=== PATIENT | male | born 1945 | race Asian ===

== ENCOUNTER 2017-05-28 09:17 | Emergency (ER) | payer MEDICARE, OTHER ==
[~2017-05-28] VITALS: Ht 154.9 cm; Wt 68.1 kg
[~2017-05-28 09:17] MED LIST: AMLO-512 PO; LOSA25TA21 PO; LOVA20 PO; METF500T7 PO; METO50 PO
[2017-05-28 09:32] LABS: GLUCOSE,POINT OF CARE 98 MG/DL (70-110)
[2017-05-28] MEDS ORDERED: SIMV5TAB6 PO (09:33)
[2017-05-28] MEDS ORDERED: METO25 PO (09:33)
[2017-05-28] MEDS ORDERED: AMLO2.5T PO (09:33)
[2017-05-28] MEDS ORDERED: HYD25 PO (09:33)
[2017-05-28] MEDS ORDERED: LOSA25TA21 PO (09:33)
[2017-05-28] MEDS ORDERED: METF500T4 PO (09:33)
[2017-05-28] MEDS ORDERED: PredniSONE 20 MG TABLET PO ONE (10:45)
[2017-05-28] MEDS ORDERED: LORATADINE 10 MG TABLET PO ONE (10:45)
[2017-05-28 11:02] VITALS: BP 132/71
== END 2017-05-28 11:04 | disposition home or self-care (01) ==
LOC: EMS 09:18
DX: R21 Rash and other nonspecific skin eruption (principal); E11.9 Type 2 diabetes mellitus without complications; E78.00 Pure hypercholesterolemia, unspecified; I10 Essential (primary) hypertension; Z86.73 Personal history of transient ischemic attack (TIA), and cerebral infarction without residual deficits
CPT/HCPCS: 82962; 99283; J7512

== ENCOUNTER 2019-07-14 00:31 | Emergency (ER) | payer MEDICARE, OTHER ==
[~2019-07-14] VITALS: Ht 157.5 cm; Wt 61.4 kg
[~2019-07-14 00:31] MED LIST changes: -AMLO-512 PO; +AMLO10TA7 PO; +AMLO2.5T4 PO; +HYD25 PO; -LOSA25TA21 PO; +LOSA25TA41 PO; +METF-960 PO; +METO25 PO; +SIMV5TAB59 PO
[2019-07-14 01:36] LABS: GLUCOSE,POINT OF CARE 158 MG/DL (70-110)
[2019-07-14 04:31] VITALS: BP 135/82
== END 2019-07-14 04:52 | disposition home or self-care (01) ==
LOC: EMS 00:33
DX: R21 Rash and other nonspecific skin eruption (principal); E11.9 Type 2 diabetes mellitus without complications; I10 Essential (primary) hypertension; E78.00 Pure hypercholesterolemia, unspecified; Z86.73 Personal history of transient ischemic attack (TIA), and cerebral infarction without residual deficits

== ENCOUNTER 2019-09-07 12:32 | Emergency (ER) | payer MEDICARE, OTHER ==
[~2019-09-07] VITALS: Ht 165.1 cm; Wt 68.2 kg
[~2019-09-07 12:32] MED LIST changes: -AMLO2.5T4 PO; -METF500T7 PO; -METO50 PO
[2019-09-07] MEDS ORDERED: TACR30OI TP (13:05)
[2019-09-07] MEDS ORDERED: METF-960 PO (13:05)
[2019-09-07] MEDS ORDERED: IBUP-1506 PO (13:05)
[2019-09-07] MEDS ORDERED: LOSA50TA64 PO (13:05)
[2019-09-07] MEDS ORDERED: CETI10TA59 PO (13:05)
[2019-09-07] MEDS ORDERED: SITA50 PO (13:05)
[2019-09-07] MEDS ORDERED: CLOB60CR4 TP (13:05)
[2019-09-07] MEDS ORDERED: VITA1CAP PO (13:05)
[2019-09-07] MEDS ORDERED: METO50 PO (13:05)
[2019-09-07 14:16] LABS: GLUCOSE,POINT OF CARE 99 MG/DL (70-110)
[2019-09-07 14:31] LABS: BASOPHILS % (AUTO) 0.4 % (0.0-2.0); EOSINOPHILS % (AUTO) 12.1 % (1.0-6.0); HEMATOCRIT 37.6 % (41-53); HEMOGLOBIN 12.1 g/dL (13.5-17.5); LYMPHOCYTES # (AUTO) 1.2 K/uL (1.0-4.8); LYMPHOCYTES % (AUTO) 14.5 % (22.0-44.0); MEAN CORPUSCULAR HEMOGLOBIN 21.8 pg (26.0-34.0); MEAN CORPUSCULAR HGB CONC 32.1 G/dL (31.0-37.0); MEAN CORPUSCULAR VOLUME 68 fL (80-100); MONOCYTES # (AUTO) 0.6 K/uL (0.1-1.0); MONOCYTES % (AUTO) 7.1 % (2.0-9.0); NEUTROPHILS # (AUTO) 5.5 K/uL (1.8-7.7); NEUTROPHILS % (AUTO) 65.9 % (40.0-70.0); PLATELET COUNT (AUTO) 260 K/uL (150-450); RED BLOOD CELL COUNT(AUTO) 5.54 MIL/uL (4.50-5.90); RED CELL DISTRIBUTION WIDTH 16.1 % (11.5-14.5)
[2019-09-07 14:48] LABS: PROTHROMBIN TIME 9.7 SEC (9.4-11.6)
[2019-09-07 14:51] LABS: CALCIUM, TOTAL 9.7 mg/dL (8.8-10.5); CREATININE 2.75 mg/dL (0.60-1.30); POTASSIUM 5.1 mmol/L (3.5-5.1)
[2019-09-07 15:18] LABS: ALBUMIN 3.8 g/dL (3.4-5.0); BILIRUBIN,TOTAL 0.5 mg/dL (0.1-1.0); PLATELET MORPHOLOGY COMMENT NORMAL; TOTAL PROTEIN, SERUM 7.8 g/dL (6.4-8.2)
[2019-09-07] MEDS ORDERED: DEXAMETHASONE SOD PHOS 4 MG/ML 5 ML VIAL IM ONE (16:45)
[2019-09-07] MEDS ORDERED: DEXAMETHASONE SOD PHOS 4 MG/ML 5 ML VIAL IVP ONE (18:00)
[2019-09-07 18:07] LABS: APPEARANCE,URINE CLEAR (CLEAR); GLUCOSE, URINE (UA) NEGATIVE (NEGATIVE); KETONES,URINE TRACE mg/dL (NEGATIVE); LEUKOCYTE ESTERASE ,URINE TRACE (NEGATIVE); NITRATE,URINE NEGATIVE (NEGATIVE); OCCULT BLOOD,URINE NEGATIVE (NEGATIVE); PROTEIN,URINE SEE CONFIRM (NEGATIVE); UROBILINOGEN,URINE 0.2 mg/dL (<=1.0)
[2019-09-07 18:20] LABS: BILIRUBIN,URINE PRELIM. POSITIVE (NEGATIVE)
[2019-09-07 18:36] LABS: BACTERIA,URINE Few /HPF (None Seen); RBC,URINE 0-2 /HPF (0-2); SQUAMOUS EPITHELIAL CELL,UR Few /LPF (None Seen); SULFOSALICYLIC ACID,URINE 2+ (Negative); WBC,URINE 0-2 /HPF (0-5)
[2019-09-07 19:13] VITALS: BP 146/63
[2019-09-07] MEDS ORDERED: DiphenhydrAMINE HCL 25 MG CAPSULE PO ONE (19:15)
[2019-09-07] MEDS ORDERED: INFLUENZA VIRUS VACCINE QVS 2019-20 (3YR+)/PF 60 MCG/0.5 ML SYRINGE IM ONE (19:45)
== END 2019-09-07 20:12 | disposition home or self-care (01) ==
LOC: EMS 12:33
DX: L50.9 Urticaria, unspecified (principal); E11.9 Type 2 diabetes mellitus without complications; I10 Essential (primary) hypertension; E78.00 Pure hypercholesterolemia, unspecified; Z86.73 Personal history of transient ischemic attack (TIA), and cerebral infarction without residual deficits; Z79.84 Long term (current) use of oral hypoglycemic drugs
CPT/HCPCS: 36415; 71045; 80053; 81001; 82550; 82962; 83880; 84484; 85025; 85610; 85730; 90471; 90686; 93005; 96374; 99285; J1100

== ENCOUNTER 2019-12-03 18:33 | Inpatient (IN) | payer MEDICARE, OTHER ==
[~2019-12-03] VITALS: Ht 165.1 cm; Wt 62.1 kg
[~2019-12-03 18:33] MED LIST changes: +CETI10TA59 PO; +CLOB60CR4 TP; -HYD25 PO; +IBUP-1506 PO; -LOSA25TA41 PO; +LOSA50TA64 PO; -METO25 PO; +METO50 PO; -SIMV5TAB59 PO; +SITA50 PO; +TACR30OI TP; +VITA1CAP PO
[2019-12-03 19:47] LABS: BASOPHILS % (AUTO) 0.5 % (0.0-2.0); EOSINOPHILS % (AUTO) 1.3 % (1.0-6.0); HEMATOCRIT 33.8 % (41-53); HEMOGLOBIN 10.8 g/dL (13.5-17.5); LYMPHOCYTES # (AUTO) 1.2 K/uL (1.0-4.8); LYMPHOCYTES % (AUTO) 16.6 % (22.0-44.0); MEAN CORPUSCULAR HEMOGLOBIN 21.5 pg (26.0-34.0); MEAN CORPUSCULAR HGB CONC 31.8 G/dL (31.0-37.0); MEAN CORPUSCULAR VOLUME 68 fL (80-100); MONOCYTES # (AUTO) 0.5 K/uL (0.1-1.0); NEUTROPHILS # (AUTO) 5.3 K/uL (1.8-7.7); NEUTROPHILS % (AUTO) 74.6 % (40.0-70.0); PLATELET COUNT (AUTO) 243 K/uL (150-450); RED BLOOD CELL COUNT(AUTO) 4.99 MIL/uL (4.50-5.90); RED CELL DISTRIBUTION WIDTH 15.8 % (11.5-14.5)
[2019-12-03 20:01] LABS: CALCIUM, TOTAL 9.4 mg/dL (8.8-10.5); CREATININE 1.92 mg/dL (0.60-1.30); POTASSIUM 3.8 mmol/L (3.5-5.1)
[2019-12-03] MEDS ORDERED: ONDANSETRON HCL 4 MG/2 ML VIAL IVP PRN (20:45)
[2019-12-03] MEDS ORDERED: BISACODYL 10 MG RECTAL RECTAL SUPPOSITORY PR PRN (20:45)
[2019-12-03] MEDS ORDERED: DEXTROSE 50%-WATER 25 GM/50 ML SYRINGE IVP PRN (20:45)
[2019-12-03] MEDS ORDERED: ACETAMINOPHEN 325 MG TABLET PO PRN ×2 (20:45)
[2019-12-03] MEDS ORDERED: SODIUM CHLORIDE 0.9% 1,000 ML IV ONE (20:45)
[2019-12-03] MEDS: DOCUSATE SODIUM 100 MG CAPSULE PO SCH (20:57)
[2019-12-03] MEDS: HEPARIN SODIUM,PORCINE 5,000 UNITS/ML VIAL SQ SCH (20:57)
[2019-12-03 21:43] LABS: GLUCOSE,POINT OF CARE 173 MG/DL (70-110)
[2019-12-03] MEDS: ATORVASTATIN CALCIUM 20 MG TABLET PO SCH (21:56)
[2019-12-03] MEDS: INSULIN LISPRO 100 UNITS/ML SQ PRN (21:56)
[2019-12-04 05:46] LABS: CALCIUM, TOTAL 9.9 mg/dL (8.8-10.5); CREATININE 1.57 mg/dL (0.60-1.30); POTASSIUM 4.1 mmol/L (3.5-5.1)
[2019-12-04] MEDS ORDERED: SODIUM CHLORIDE 0.9% 1,000 ML IV ONE (08:15)
[2019-12-04 08:34] LABS: GLUCOSE,POINT OF CARE 103 MG/DL (70-110)
[2019-12-04 10:17] VITALS: BP 143/85
[2019-12-04] MEDS: INSULIN LISPRO 100 UNITS/ML SQ PRN (12:39)
[2019-12-04] MEDS: FAMOTIDINE 20 MG TABLET PO SCH (12:44)
[2019-12-04] MEDS: DOCUSATE SODIUM 100 MG CAPSULE PO SCH ×2 (12:45→21:00)
[2019-12-04] MEDS: HEPARIN SODIUM,PORCINE 5,000 UNITS/ML VIAL SQ SCH ×2 (12:45→21:31)
[2019-12-04] MEDS: ASPIRIN 81 MG CHEWABLE TABLET PO SCH (12:45)
[2019-12-04] MEDS ORDERED: PNEUMOCOCCAL VACCINE POLYVALENT 0.5 ML VIAL [PPSV23] IM ONE (14:15)
[2019-12-04 16:40] VITALS: BP 156/89
[2019-12-04 18:11] LABS: GLUCOMETER DEV NAME(LOC) 5S.1; GLUCOSE,POINT OF CARE 113 MG/DL (70-110)
[2019-12-04 20:09] VITALS: BP 152/85
[2019-12-04] MEDS: ATORVASTATIN CALCIUM 20 MG TABLET PO SCH (21:28)
[2019-12-05 00:23] VITALS: BP 157/86
[2019-12-05 01:30] LABS: GLUCOMETER DEV NAME(LOC) 5N.2; GLUCOSE,POINT OF CARE 240 MG/DL (70-110)
[2019-12-05 04:40] VITALS: BP 148/94
[2019-12-05 06:08] LABS: ANION GAP 10 mmol/L (8-16); CALCIUM, TOTAL 9.1 mg/dL (8.8-10.5); CARBON DIOXIDE 26 mmol/L (22-29); CHLORIDE 106 mmol/L (98-107); CREATININE 1.12 mg/dL (0.60-1.30); GLUCOSE,RANDOM 103 mg/dL (70-110); POTASSIUM 3.6 mmol/L (3.5-5.1); SODIUM SERUM 142 mmol/L (136-145); UREA NITROGEN, BLOOD 12 mg/dL (7-18)
[2019-12-05 06:11] LABS: GLOMERULAR FILTR. RATE CALC > 60 mL/min (>60)
[2019-12-05 07:29] VITALS: BP 133/91
[2019-12-05] MEDS: HEPARIN SODIUM,PORCINE 5,000 UNITS/ML VIAL SQ SCH (07:54)
[2019-12-05] MEDS: ASPIRIN 81 MG CHEWABLE TABLET PO SCH (07:54)
[2019-12-05] MEDS: FAMOTIDINE 20 MG TABLET PO SCH (07:54)
[2019-12-05] MEDS: DOCUSATE SODIUM 100 MG CAPSULE PO SCH (07:54)
[2019-12-05 10:46] LABS: GLUCOMETER DEV NAME(LOC) 5S.1; GLUCOSE,POINT OF CARE 107 MG/DL (70-110)
[2019-12-05 10:46] LABS: GLUCOMETER DEV NAME(LOC) 5S.1; GLUCOSE,POINT OF CARE 143 MG/DL (70-110)
[2019-12-05 11:29] VITALS: BP 142/90
== END 2019-12-05 12:00 | disposition home or self-care (01) | DRG 92 ==
LOC: EMS 18:35 → 5N 12-04 04:19
PROVIDERS: ADMIT Internal Medicine; ATTEND Internal Medicine
DX: R27.0 Ataxia, unspecified (principal); N17.9 Acute kidney failure, unspecified; E78.00 Pure hypercholesterolemia, unspecified; I10 Essential (primary) hypertension; E11.9 Type 2 diabetes mellitus without complications; R29.6 Repeated falls; Z86.73 Personal history of transient ischemic attack (TIA), and cerebral infarction without residual deficits; Z95.5 Presence of coronary angioplasty implant and graft; Z28.21 Immunization not carried out because of patient refusal; Z98.42 Cataract extraction status, left eye; Z98.41 Cataract extraction status, right eye
CPT/HCPCS: 70450; 93005; 97116; 97161; 97530; J1644; J1815; J7030

== ENCOUNTER 2019-12-06 14:14 | Inpatient (IN) | payer MEDICARE, OTHER ==
[~2019-12-06] VITALS: Ht 165.1 cm; Wt 58.2 kg
[~2019-12-06 14:14] MED LIST changes: -AMLO10TA7 PO; -CETI10TA59 PO; -CLOB60CR4 TP; -IBUP-1506 PO; -LOSA50TA64 PO; -SITA50 PO
[2019-12-06 14:42] LABS: GLUCOSE,POINT OF CARE 116 MG/DL (70-110)
[2019-12-06 15:23] LABS: BASOPHILS % (AUTO) 0.7 % (0.0-2.0); EOSINOPHILS % (AUTO) 0.6 % (1.0-6.0); HEMATOCRIT 35.9 % (41-53); HEMOGLOBIN 11.2 g/dL (13.5-17.5); LYMPHOCYTES # (AUTO) 0.9 K/uL (1.0-4.8); LYMPHOCYTES % (AUTO) 14.2 % (22.0-44.0); MEAN CORPUSCULAR HEMOGLOBIN 21.2 pg (26.0-34.0); MEAN CORPUSCULAR HGB CONC 31.3 G/dL (31.0-37.0); MEAN CORPUSCULAR VOLUME 68 fL (80-100); MONOCYTES # (AUTO) 0.4 K/uL (0.1-1.0); MONOCYTES % (AUTO) 6.7 % (2.0-9.0); NEUTROPHILS # (AUTO) 4.9 K/uL (1.8-7.7); NEUTROPHILS % (AUTO) 77.8 % (40.0-70.0); PLATELET COUNT (AUTO) 239 K/uL (150-450); RED BLOOD CELL COUNT(AUTO) 5.29 MIL/uL (4.50-5.90)
[2019-12-06 15:32] LABS: CALCIUM, TOTAL 9.4 mg/dL (8.8-10.5); CREATININE 1.81 mg/dL (0.60-1.30); POTASSIUM 4.1 mmol/L (3.5-5.1)
[2019-12-06 15:42] LABS: PROTHROMBIN TIME 9.9 SEC (9.4-11.6)
[2019-12-06 15:44] LABS: APPEARANCE,URINE CLEAR (CLEAR); BILIRUBIN,URINE NEGATIVE (NEGATIVE); GLUCOSE, URINE (UA) NEGATIVE (NEGATIVE); KETONES,URINE NEGATIVE (NEGATIVE); LEUKOCYTE ESTERASE ,URINE NEGATIVE (NEGATIVE); NITRATE,URINE NEGATIVE (NEGATIVE); OCCULT BLOOD,URINE NEGATIVE (NEGATIVE); PH,URINE 5.5 (5.0-8.0); PROTEIN,URINE POS 1+ (NEGATIVE); UROBILINOGEN,URINE 0.2 mg/dL (<=1.0)
[2019-12-06 15:57] LABS: BILIRUBIN,TOTAL 0.4 mg/dL (0.1-1.0); TOTAL PROTEIN, SERUM 7.3 g/dL (6.4-8.2)
[2019-12-06] MEDS ORDERED: ONDANSETRON HCL 4 MG/2 ML VIAL IVP ONE (16:00)
[2019-12-06] MEDS ORDERED: SODIUM CHLORIDE 0.9% 1,000 ML IV ONE (16:00)
[2019-12-06 16:10] LABS: BACTERIA,URINE None Seen /HPF (None Seen); RBC,URINE None Seen /HPF (0-2); SQUAMOUS EPITHELIAL CELL,UR Rare /LPF (None Seen); WBC,URINE 0-2 /HPF (0-5)
[2019-12-06] MEDS ORDERED: HYDROmorphone 2 MG/ML SYRINGE IVP PRN (19:45)
[2019-12-06] MEDS ORDERED: ONDANSETRON HCL 4 MG/2 ML VIAL IVP PRN (19:45)
[2019-12-06] MEDS ORDERED: ACETAMINOPHEN 325 MG TABLET PO PRN (19:45)
[2019-12-06] MEDS ORDERED: 0.9% SODIUM CHLORIDE 10 ML SYRINGE IVP PRN (19:45)
[2019-12-06 23:37] VITALS: BP 159/90
[2019-12-07] MEDS ORDERED: -PHARMACY VACCINE NOTE- MISC ONE (02:00)
[2019-12-07] MEDS ORDERED: PNEUMOCOCCAL VACCINE POLYVALENT 0.5 ML VIAL [PPSV23] IM ONE (02:00)
[2019-12-07] MEDS ORDERED: ONDANSETRON HCL 4 MG/2 ML VIAL IVP PRN (02:45)
[2019-12-07] MEDS ORDERED: OxyCODONE HCL/ACETAMINOPHEN 5-325 MG TABLET PO PRN (02:45)
[2019-12-07] MEDS ORDERED: MAGNESIUM HYDROXIDE SUSPENSION 30 ML UDCUP PO PRN (02:45)
[2019-12-07] MEDS ORDERED: ACETAMINOPHEN 325 MG TABLET PO PRN (02:45)
[2019-12-07] MEDS ORDERED: 0.9% SODIUM CHLORIDE 10 ML SYRINGE IVP PRN (02:45)
[2019-12-07 05:02] VITALS: BP 143/79
[2019-12-07 06:57] LABS: BASOPHILS % (AUTO) 0.7 % (0.0-2.0); EOSINOPHILS % (AUTO) 1.9 % (1.0-6.0); HEMATOCRIT 32.2 % (41-53); HEMOGLOBIN 10.2 g/dL (13.5-17.5); LYMPHOCYTES # (AUTO) 1.2 K/uL (1.0-4.8); MEAN CORPUSCULAR HEMOGLOBIN 21.5 pg (26.0-34.0); MEAN CORPUSCULAR HGB CONC 31.8 G/dL (31.0-37.0); MEAN CORPUSCULAR VOLUME 68 fL (80-100); MONOCYTES # (AUTO) 0.6 K/uL (0.1-1.0); MONOCYTES % (AUTO) 12.7 % (2.0-9.0); NEUTROPHILS # (AUTO) 2.7 K/uL (1.8-7.7); NEUTROPHILS % (AUTO) 58.7 % (40.0-70.0); PLATELET COUNT (AUTO) 218 K/uL (150-450); RED BLOOD CELL COUNT(AUTO) 4.76 MIL/uL (4.50-5.90); RED CELL DISTRIBUTION WIDTH 15.6 % (11.5-14.5)
[2019-12-07 07:11] LABS: ALBUMIN 3.2 g/dL (3.4-5.0); BILIRUBIN,TOTAL 0.5 mg/dL (0.1-1.0); CALCIUM, TOTAL 9.4 mg/dL (8.8-10.5); CREATININE 1.49 mg/dL (0.60-1.30); POTASSIUM 3.5 mmol/L (3.5-5.1); TOTAL PROTEIN, SERUM 6.5 g/dL (6.4-8.2)
[2019-12-07 07:27] LABS: GLUCOMETER DEV NAME(LOC) 5N.2; GLUCOSE,POINT OF CARE 117 MG/DL (70-110)
[2019-12-07 07:55] VITALS: BP 152/87
[2019-12-07] MEDS: METOPROLOL TARTRATE 50 MG TABLET PO SCH ×2 (08:39→21:06)
[2019-12-07] MEDS: FAMOTIDINE 10 MG/ML 2 ML VIAL IVP SCH (08:40)
[2019-12-07] MEDS ORDERED: DOCUSATE SODIUM 100 MG CAPSULE PO SCH (09:00)
[2019-12-07] MEDS ORDERED: DEXTROSE 50%-WATER 25 GM/50 ML SYRINGE IVP PRN (10:30)
[2019-12-07] MEDS: SODIUM CHLORIDE 0.9% 1,000 ML IV SCH (11:49)
[2019-12-07 11:58] VITALS: BP 141/75
[2019-12-07] MEDS ORDERED: LOVASTATIN 20 MG TABLET PO SCH (18:00)
[2019-12-07 19:37] VITALS: BP 170/77
[2019-12-07 19:47] LABS: GLUCOMETER DEV NAME(LOC) 5N.2; GLUCOSE,POINT OF CARE 162 MG/DL (70-110)
[2019-12-07 19:48] LABS: GLUCOMETER DEV NAME(LOC) 5N.2; GLUCOSE,POINT OF CARE 101 MG/DL (70-110)
[2019-12-07] MEDS: OxyCODONE HCL/ACETAMINOPHEN 5-325 MG TABLET PO PRN (21:11)
[2019-12-07 23:36] VITALS: BP 181/85
[2019-12-08] MEDS ORDERED: CloNIDine HCL 0.1 MG TABLET PO PRN (00:15)
[2019-12-08] MEDS: SODIUM CHLORIDE 0.9% 1,000 ML IV SCH ×2 (00:30→10:02)
[2019-12-08 04:46] VITALS: BP 131/51
[2019-12-08 05:59] LABS: GLUCOMETER DEV NAME(LOC) 5N.2; GLUCOSE,POINT OF CARE 104 MG/DL (70-110)
[2019-12-08 07:33] LABS: BASOPHILS % (AUTO) 1.2 % (0.0-2.0); EOSINOPHILS % (AUTO) 3.6 % (1.0-6.0); HEMATOCRIT 30.6 % (41-53); HEMOGLOBIN 9.9 g/dL (13.5-17.5); MEAN CORPUSCULAR HEMOGLOBIN 22.1 pg (26.0-34.0); MEAN CORPUSCULAR HGB CONC 32.4 G/dL (31.0-37.0); MEAN CORPUSCULAR VOLUME 68 fL (80-100); MONOCYTES # (AUTO) 0.5 K/uL (0.1-1.0); MONOCYTES % (AUTO) 16.7 % (2.0-9.0); NEUTROPHILS # (AUTO) 1.5 K/uL (1.8-7.7); NEUTROPHILS % (AUTO) 47.5 % (40.0-70.0); PLATELET COUNT (AUTO) 205 K/uL (150-450); RED BLOOD CELL COUNT(AUTO) 4.49 MIL/uL (4.50-5.90); RED CELL DISTRIBUTION WIDTH 15.6 % (11.5-14.5)
[2019-12-08 07:58] LABS: ALBUMIN 3.1 g/dL (3.4-5.0); BILIRUBIN,TOTAL 0.6 mg/dL (0.1-1.0); CALCIUM, TOTAL 9.1 mg/dL (8.8-10.5); CHOL/HDL RATIO 2.6 (4.2-7.3); CREATININE 1.33 mg/dL (0.60-1.30); FREE T4 (FREE THYROXINE) 1.14 ng/dL (0.76-1.46); POTASSIUM 3.5 mmol/L (3.5-5.1); TOTAL PROTEIN, SERUM 6.5 g/dL (6.4-8.2)
[2019-12-08 08:04] VITALS: BP 139/75
[2019-12-08 08:07] LABS: % IRON SATURATION 35.4 % (30-44); HEMOGLOBIN A1C 6.6 % (4.5-6.2)
[2019-12-08 08:37] LABS: THYROID STIMULATING HORMONE 0.5 uIU/mL (0.36-3.74)
[2019-12-08] MEDS: METOPROLOL TARTRATE 50 MG TABLET PO SCH ×2 (08:38→20:24)
[2019-12-08] MEDS: FAMOTIDINE 10 MG/ML 2 ML VIAL IVP SCH (08:38)
[2019-12-08] MEDS: TACROLIMUS 0.03% TP SCH ×2 (10:41→21:23)
[2019-12-08 11:32] LABS: GLUCOMETER DEV NAME(LOC) 5S.1; GLUCOSE,POINT OF CARE 116 MG/DL (70-110)
[2019-12-08 12:11] LABS: GLUCOMETER DEV NAME(LOC) 5N.2; GLUCOSE,POINT OF CARE 124 MG/DL (70-110)
[2019-12-08 12:41] VITALS: BP 138/67
[2019-12-08 16:14] VITALS: BP 149/80
[2019-12-08 17:52] LABS: GLUCOMETER DEV NAME(LOC) 5N.2; GLUCOSE,POINT OF CARE 102 MG/DL (70-110)
[2019-12-08 19:40] VITALS: BP 129/80
[2019-12-08 23:51] LABS: GLUCOMETER DEV NAME(LOC) 5S.1; GLUCOSE,POINT OF CARE 122 MG/DL (70-110)
[2019-12-09] VITALS (7 sets, daily range): BP systolic 129–168; BP diastolic 64–89
[2019-12-09] MEDS: SODIUM CHLORIDE 0.9% 1,000 ML IV SCH ×2 (00:28→10:03)
[2019-12-09 06:09] LABS: GLUCOMETER DEV NAME(LOC) 5N.2; GLUCOSE,POINT OF CARE 93 MG/DL (70-110)
[2019-12-09] MEDS ORDERED: BUPIVACAINE 0.25%/EPI 1:200,000/PF 10 ML VIAL ONE (06:42)
[2019-12-09] MEDS ORDERED: IOHEXOL 240 MG/ML 20 ML VIAL ONE ×2 (06:44→08:09)
[2019-12-09] MEDS ORDERED: SODIUM CL IRRIG SOLN BAG 3,000 ML IRRIG ONE ×2 (06:44→11:07)
[2019-12-09 06:57] LABS: BASOPHILS % (AUTO) 0.8 % (0.0-2.0); EOSINOPHILS % (AUTO) 2.7 % (1.0-6.0); HEMOGLOBIN 10.8 g/dL (13.5-17.5); LYMPHOCYTES # (AUTO) 1.6 K/uL (1.0-4.8); LYMPHOCYTES % (AUTO) 30.6 % (22.0-44.0); MEAN CORPUSCULAR HEMOGLOBIN 21.7 pg (26.0-34.0); MEAN CORPUSCULAR HGB CONC 31.9 G/dL (31.0-37.0); MEAN CORPUSCULAR VOLUME 68 fL (80-100); MONOCYTES # (AUTO) 0.6 K/uL (0.1-1.0); MONOCYTES % (AUTO) 12.1 % (2.0-9.0); NEUTROPHILS # (AUTO) 2.8 K/uL (1.8-7.7); NEUTROPHILS % (AUTO) 53.8 % (40.0-70.0); PLATELET COUNT (AUTO) 215 K/uL (150-450)
[2019-12-09 07:07] LABS: CALCIUM, TOTAL 9.3 mg/dL (8.8-10.5); CREATININE 1.27 mg/dL (0.60-1.30); POTASSIUM 3.8 mmol/L (3.5-5.1)
[2019-12-09] MEDS ORDERED: CeFAZolin 2 GM/DEXTROSE 50 ML IV ONE (07:08)
[2019-12-09] MEDS ORDERED: FentaNYL CITRATE-PF 100 MCG/2 ML VIAL IVP PRN (07:30)
[2019-12-09] MEDS ORDERED: MEPERIDINE-PF 25 MG/ML VIAL IVP PRN (07:30)
[2019-12-09] MEDS ORDERED: HYDROmorphone 2 MG/ML SYRINGE IVP PRN (07:30)
[2019-12-09] MEDS: OXYGEN THERAPY IH SCH (08:00)
[2019-12-09] MEDS ORDERED: SUGAMMADEX SODIUM 200 MG/2 ML VIAL IVP ONE (08:18)
[2019-12-09] MEDS ORDERED: SODIUM CHLORIDE 0.9% 1,000 ML ONE (08:18)
[2019-12-09] MEDS: METOPROLOL TARTRATE 50 MG TABLET PO SCH ×2 (10:02→20:19)
[2019-12-09] MEDS: DOCUSATE SODIUM 100 MG CAPSULE PO PRN (10:02)
[2019-12-09] MEDS: TACROLIMUS 0.03% TP SCH ×2 (10:03→20:23)
[2019-12-09] MEDS: FAMOTIDINE 10 MG/ML 2 ML VIAL IVP SCH (10:14)
[2019-12-09] MEDS: OxyCODONE HCL/ACETAMINOPHEN 5-325 MG TABLET PO PRN ×2 (11:36→21:35)
[2019-12-09 12:16] LABS: GLUCOMETER DEV NAME(LOC) 5N.1; GLUCOSE,POINT OF CARE 137 MG/DL (70-110)
[2019-12-09] MEDS: INSULIN LISPRO 100 UNITS/ML SQ PRN ×2 (17:16→20:23)
[2019-12-09 17:21] LABS: GLUCOMETER DEV NAME(LOC) 5N.1; GLUCOSE,POINT OF CARE 162 MG/DL (70-110)
[2019-12-09] MEDS ORDERED: SODIUM CL IRRIG SOLN BOTTLE 250 ML IRRIG ONE (21:27)
[2019-12-09 22:04] LABS: GLUCOMETER DEV NAME(LOC) 5N.1; GLUCOSE,POINT OF CARE 158 MG/DL (70-110)
[2019-12-10] MEDS ORDERED: SODIUM CHLORIDE 0.9% 1,000 ML ONE (00:54)
[2019-12-10] MEDS: SODIUM CHLORIDE 0.9% 1,000 ML IV SCH ×2 (00:57→13:00)
[2019-12-10 04:44] VITALS: BP 155/78
[2019-12-10] MEDS ORDERED: ONDANSETRON HCL 4 MG/2 ML VIAL IVP ONE ×2 (05:42)
[2019-12-10] MEDS ORDERED: FentaNYL CITRATE-PF 100 MCG/2 ML VIAL IVP ONE (05:42)
[2019-12-10] MEDS ORDERED: EPHEDrine SULFATE 50 MG/ML VIAL IM ONE (05:42)
[2019-12-10] MEDS ORDERED: 0.9% SODIUM CHLORIDE 10 ML VIAL IVP ONE (05:42)
[2019-12-10] MEDS ORDERED: LIDOCAINE 1% 10 ML VIAL IM ONE ×2 (05:42)
[2019-12-10] MEDS ORDERED: DEXAMETHASONE SOD PHOS 4 MG/ML VIAL IVP ONE (05:42)
[2019-12-10] MEDS ORDERED: PROPOFOL 1% 20 ML VIAL IVP ONE (05:42)
[2019-12-10] MEDS ORDERED: SUCCINYLCHOLINE CHLORIDE 20 MG/ML 10 ML VIAL IVP ONE (05:42)
[2019-12-10] MEDS ORDERED: ROCURONIUM BROMIDE 10 MG/ML 5 ML VIAL IVP ONE (05:42)
[2019-12-10 07:26] VITALS: BP 136/67
[2019-12-10] MEDS: OXYGEN THERAPY IH SCH (08:00)
[2019-12-10] MEDS: TACROLIMUS 0.03% TP SCH (08:16)
[2019-12-10] MEDS: FAMOTIDINE 10 MG/ML 2 ML VIAL IVP SCH (08:16)
[2019-12-10] MEDS: METOPROLOL TARTRATE 50 MG TABLET PO SCH (08:16)
[2019-12-10] MEDS: DOCUSATE SODIUM 100 MG CAPSULE PO PRN (09:01)
[2019-12-10 11:20] VITALS: BP 187/91
[2019-12-10 12:25] VITALS: BP 151/91
[2019-12-18 20:47] LABS: GLUCOMETER DEV NAME(LOC) 4E.2; GLUCOSE,POINT OF CARE 115 MG/DL (70-110)
[2019-12-18 20:47] LABS: GLUCOMETER DEV NAME(LOC) 4E.2; GLUCOSE,POINT OF CARE 133 MG/DL (70-110)
== END 2019-12-10 16:00 | disposition home or self-care (01) | DRG 418 ==
LOC: EMS 14:17 → 5N 22:10 → 4E 12-10 02:01 → UNDODISIN 12-10 14:00
PROVIDERS: ADMIT Internal Medicine; ATTEND Internal Medicine
PROC: BF131ZZ Fluoroscopy of Gallbladder and Bile Ducts using Low Osmolar Contrast (ICD-10-PCS; 2019-12-09)
PROC: 0FT44ZZ Resection of Gallbladder, Percutaneous Endoscopic Approach (ICD-10-PCS; principal; 2019-12-09 07:30)
DX: K85.10 Biliary acute pancreatitis without necrosis or infection (principal); E44.0 Moderate protein-calorie malnutrition; I10 Essential (primary) hypertension; E11.9 Type 2 diabetes mellitus without complications; E78.00 Pure hypercholesterolemia, unspecified; H91.90 Unspecified hearing loss, unspecified ear; Z86.73 Personal history of transient ischemic attack (TIA), and cerebral infarction without residual deficits; Z95.5 Presence of coronary angioplasty implant and graft
CPT/HCPCS: 74176; 76700; 82270; 82728; 83036; 83540; 83550; 84439; 84443; 87081; 88304; 93005; J0330; J0690; J1100; J2405; J2704; J3010; J3490; J7030; Q9966

== ENCOUNTER 2020-01-09 15:52 | Emergency (ER) | payer MEDICARE, OTHER ==
[~2020-01-09] VITALS: Ht 165.1 cm; Wt 58.2 kg
[2020-01-09 16:17] LABS: GLUCOSE,POINT OF CARE 129 MG/DL (70-110)
[2020-01-09] MEDS ORDERED: BETAMETHASONE DIP 0.05% 15 GM CREAM TP ONE (19:30)
[2020-01-09] MEDS ORDERED: HYDROCORTISONE 1% 30 GM CREAM TP ONE (19:30)
[2020-01-09 19:43] VITALS: BP 116/69
== END 2020-01-09 19:44 | disposition home or self-care (01) ==
LOC: EMS 15:52
DX: R21 Rash and other nonspecific skin eruption (principal); E78.00 Pure hypercholesterolemia, unspecified; I10 Essential (primary) hypertension; Z86.73 Personal history of transient ischemic attack (TIA), and cerebral infarction without residual deficits; Z79.899 Other long term (current) drug therapy; Z79.84 Long term (current) use of oral hypoglycemic drugs; Z95.5 Presence of coronary angioplasty implant and graft; Z98.890 Other specified postprocedural states

== ENCOUNTER 2020-05-04 21:45 | Emergency (ER) | payer MEDICARE, OTHER ==
[~2020-05-04] VITALS: Ht 157.5 cm; Wt 81.8 kg
[2020-05-04] MEDS ORDERED: SODIUM CHLORIDE 0.9% 1,000 ML IV ONE (22:45)
[2020-05-04 23:00] LABS: BASOPHILS % (AUTO) 0.8 % (0.0-2.0); EOSINOPHILS % (AUTO) 4.6 % (1.0-6.0); HEMATOCRIT 35.1 % (41-53); HEMOGLOBIN 11.1 g/dL (13.5-17.5); LYMPHOCYTES % (AUTO) 17.2 % (22.0-44.0); MEAN CORPUSCULAR HEMOGLOBIN 21.5 pg (26.0-34.0); MEAN CORPUSCULAR HGB CONC 31.7 G/dL (31.0-37.0); MEAN CORPUSCULAR VOLUME 68 fL (80-100); MONOCYTES # (AUTO) 0.8 K/uL (0.1-1.0); MONOCYTES % (AUTO) 13.8 % (2.0-9.0); NEUTROPHILS # (AUTO) 3.7 K/uL (1.8-7.7); NEUTROPHILS % (AUTO) 63.6 % (40.0-70.0); PLATELET COUNT (AUTO) 200 K/uL (150-450); RED BLOOD CELL COUNT(AUTO) 5.18 MIL/uL (4.50-5.90); RED CELL DISTRIBUTION WIDTH 16.6 % (11.5-14.5)
[2020-05-04 23:09] LABS: CALCIUM, TOTAL 9.5 mg/dL (8.8-10.5); CREATININE 2.23 mg/dL (0.60-1.30); POTASSIUM 4.5 mmol/L (3.5-5.1)
[2020-05-04 23:15] LABS: BILIRUBIN,TOTAL 0.3 mg/dL (0.1-1.0); TOTAL PROTEIN, SERUM 8.1 g/dL (6.4-8.2)
[2020-05-05] MEDS ORDERED: DiphenhydrAMINE HCL 25 MG CAPSULE PO ONE (00:30)
[2020-05-05 01:25] VITALS: BP 143/84
== END 2020-05-05 01:35 | disposition home or self-care (01) ==
LOC: EMS 21:47
DX: E86.0 Dehydration (principal); E11.22 Type 2 diabetes mellitus with diabetic chronic kidney disease; I12.9 Hypertensive chronic kidney disease with stage 1 through stage 4 chronic kidney disease, or unspecified chronic kidney disease; N18.9 Chronic kidney disease, unspecified; R51 Headache; E78.00 Pure hypercholesterolemia, unspecified; Z79.84 Long term (current) use of oral hypoglycemic drugs
CPT/HCPCS: 36415; 80053; 85025; 96360; 99285; J7030

== ENCOUNTER 2022-12-11 17:12 | Emergency (ER) | payer MEDICARE, OTHER ==
[~2022-12-11] VITALS: Ht 170.2 cm; Wt 70.5 kg
[~2022-12-11 17:12] MED LIST changes: +ALLO-97 PO; +ASPI-1450 PO; +ISOS30TA92 PO; +LISI-892 PO; -LOVA20 PO; +LOVA20TA73 PO; +METF-1211 PO; -METF-960 PO
[2022-12-11 17:15] VITALS: BP 134/86
[2022-12-11] MEDS ORDERED: HYDR30CR39 TP (20:10)
== END 2022-12-11 20:30 | disposition home or self-care (01) ==
LOC: EMS 17:13
DX: L29.9 Pruritus, unspecified (principal); E11.9 Type 2 diabetes mellitus without complications; E78.00 Pure hypercholesterolemia, unspecified; I10 Essential (primary) hypertension; Z98.890 Other specified postprocedural states
CPT/HCPCS: 82962; 99283

== ENCOUNTER 2022-12-13 09:22 | Emergency (ER) | payer MEDICARE, OTHER ==
[~2022-12-13] VITALS: Ht 157.5 cm; Wt 59.1 kg
[~2022-12-13 09:22] MED LIST changes: +HYDR30CR39 TP
[2022-12-13] MEDS ORDERED: DiphenhydrAMINE HCL 25 MG CAPSULE PO ONE (12:30)
[2022-12-13 14:47] VITALS: BP 126/74
== END 2022-12-13 15:05 | disposition home or self-care (01) ==
LOC: EMS 10:10
DX: L29.9 Pruritus, unspecified (principal); E11.9 Type 2 diabetes mellitus without complications; E78.00 Pure hypercholesterolemia, unspecified; I10 Essential (primary) hypertension; Z98.890 Other specified postprocedural states
CPT/HCPCS: 99285; Z7502; Z7610

== ENCOUNTER 2023-07-21 10:16 | Emergency (ER) | payer MEDICARE, OTHER ==
[~2023-07-21] VITALS: Ht 157.5 cm; Wt 59.0 kg
[2023-07-21] MEDS ORDERED: SODIUM CHLORIDE 0.9% 1,000 ML IV ONE (10:45)
[2023-07-21 11:30] LABS: BASOPHILS % (AUTO) 0.5 % (0.0-2.0); EOSINOPHILS % (AUTO) 1.6 % (1.0-6.0); HEMATOCRIT 34.4 % (41-53); HEMOGLOBIN 10.8 g/dL (13.5-17.5); LYMPHOCYTES # (AUTO) 0.4 K/uL (1.0-4.8); LYMPHOCYTES % (AUTO) 12.7 % (22.0-44.0); MEAN CORPUSCULAR HEMOGLOBIN 22.2 pg (26.0-34.0); MEAN CORPUSCULAR HGB CONC 31.3 G/dL (31.0-37.0); MEAN CORPUSCULAR VOLUME 71 fL (80-100); MONOCYTES # (AUTO) 0.5 K/uL (0.1-1.0); MONOCYTES % (AUTO) 12.9 % (2.0-9.0); NEUTROPHILS # (AUTO) 2.6 K/uL (1.8-7.7); NEUTROPHILS % (AUTO) 72.3 % (40.0-70.0); PLATELET COUNT (AUTO) 148 K/uL (150-450); RED BLOOD CELL COUNT(AUTO) 4.86 MIL/uL (4.50-5.90); RED CELL DISTRIBUTION WIDTH 16.1 % (11.5-14.5); WHITE BLOOD COUNT (AUTO) 3.5 K/uL (4.5-11.0)
[2023-07-21 11:39] LABS: APPEARANCE,URINE CLEAR (CLEAR); BILIRUBIN,URINE NEGATIVE (NEGATIVE); COLOR,URINE LIGHT YELLOW (YELLOW); GLUCOSE, URINE (UA) NEGATIVE (NEGATIVE); KETONES,URINE NEGATIVE (NEGATIVE); LEUKOCYTE ESTERASE ,URINE NEGATIVE (NEGATIVE); NITRATE,URINE NEGATIVE (NEGATIVE); OCCULT BLOOD,URINE NEGATIVE (NEGATIVE); PH,URINE 5.5 (5.0-8.0); PH,URINE DRUG SCREEN 5.5 (5.0-8.0); PROTEIN,URINE 100-200,SEE CONFIRM mg/dL (NEGATIVE); SPECIFIC GRAVITIY, URINE 1.017 (1.003-1.030); UROBILINOGEN,URINE <=1.0 mg/dL (<=1.0)
[2023-07-21 11:46] LABS: PROTHROMBIN TIME 10.9 SEC (9.4-11.6)
[2023-07-21 11:49] LABS: SULFOSALICYLIC ACID,URINE 2+ (Negative)
[2023-07-21 11:51] LABS: BACTERIA,URINE None Seen /HPF (None Seen); RBC,URINE 0-2 /HPF (0-2); WBC,URINE 0-2 /HPF (0-5)
[2023-07-21 11:52] LABS: RBC MORPHOLOGY COMMENT ABNORMAL RBC MORPH
[2023-07-21 11:53] LABS: CALCIUM, TOTAL 8.9 mg/dL (8.8-10.5); CREATININE 1.51 mg/dL (0.60-1.30); POTASSIUM 3.6 mmol/L (3.5-5.1)
[2023-07-21 11:55] LABS: TROPONIN I-HIGH SENSITIVITY 21 ng/L (<76)
[2023-07-21 11:57] LABS: ALBUMIN 3.4 g/dL (3.4-5.0); BILIRUBIN,TOTAL 0.7 mg/dL (0.1-1.0); TOTAL PROTEIN, SERUM 6.4 g/dL (6.4-8.2)
[2023-07-21 12:01] LABS: ALCOHOL, URINE DRUG SCREEN NEGATIVE (NEGATIVE); AMPHET/METH SCREEN,URINE NEGATIVE (NEGATIVE); BARBITURATE SCREEN, URINE NEGATIVE (NEGATIVE); BENZODIAZEPINES SCREEN,URINE NEGATIVE (NEGATIVE); CANNABINOID SCREEN,URINE NEGATIVE (NEGATIVE); COCAINE SCREEN,URINE NEGATIVE (NEGATIVE); METHADONE SCREEN, URINE NEGATIVE (NEGATIVE); OPIATE SCREEN,URINE NEGATIVE (NEGATIVE); PHENCYCLIDINE SCREEN,URINE NEGATIVE (NEGATIVE)
[2023-07-21 12:55] VITALS: TEMP 98.6
[2023-07-21 13:00] VITALS: BP 125/71; PULSE 67; RESP 16
== END 2023-07-21 13:23 | disposition home or self-care (01) ==
LOC: EMS 10:16
DX: R51.9 Headache, unspecified (principal); R42 Dizziness and giddiness; E11.9 Type 2 diabetes mellitus without complications; E78.00 Pure hypercholesterolemia, unspecified; I10 Essential (primary) hypertension; I63.9 Cerebral infarction, unspecified
CPT/HCPCS: 70450; 71045; 80053; 80307; 81001; 81002; 82962; 84484; 85025; 85610; 85730; 87040; 93005; 99285; 36415-L1; 36415-TC

== ENCOUNTER 2023-08-02 07:30 | Emergency (ER) | payer MEDICARE, OTHER ==
[~2023-08-02] VITALS: Ht 162.6 cm; Wt 56.8 kg
[2023-08-02 07:40] VITALS: BP 131/62; PULSE 52; RESP 14; TEMP 98.1
[2023-08-02] MEDS ORDERED: DiphenhydrAMINE HCL 25 MG CAPSULE PO ONE (08:00)
[2023-08-02] MEDS ORDERED: DIPH25CA85 PO (08:46)
== END 2023-08-02 09:15 | disposition home or self-care (01) ==
LOC: EMS 07:53
DX: L29.9 Pruritus, unspecified (principal); E11.9 Type 2 diabetes mellitus without complications; E78.00 Pure hypercholesterolemia, unspecified; I10 Essential (primary) hypertension; Z98.890 Other specified postprocedural states
CPT/HCPCS: 99282; Z7502; Z7610

== ENCOUNTER 2023-08-21 13:24 | Emergency (ER) | payer MEDICARE, OTHER ==
[~2023-08-21] VITALS: Ht 147.3 cm; Wt 72.7 kg
[~2023-08-21 13:24] MED LIST changes: -ALLO-97 PO; -ASPI-1450 PO; +DONE-52 PO; +FAMO20 PO; -HYDR30CR39 TP; -ISOS30TA92 PO; -LISI-892 PO; -METO50 PO; +PRED-554 PO; +TRI2515C TP
[2023-08-21 13:30] VITALS: TEMP 99.1
[2023-08-21] MEDS ORDERED: OMEP10CA5 PO (13:31)
[2023-08-21] MEDS ORDERED: METO50 PO (13:31)
[2023-08-21] MEDS ORDERED: FERR325T23 PO (13:31)
[2023-08-21] MEDS ORDERED: CLOP75TA32 PO (13:31)
[2023-08-21] MEDS ORDERED: CHOL200059 PO (13:31)
[2023-08-21] MEDS ORDERED: LINA5TAB PO (13:31)
[2023-08-21] MEDS ORDERED: HydrOXYzine PAMOATE 25 MG CAPSULE PO ONE (14:45)
[2023-08-21 14:48] LABS: HEMATOCRIT 33.4 % (41-53); HEMOGLOBIN 10.6 g/dL (13.5-17.5); MEAN CORPUSCULAR HEMOGLOBIN 22.8 pg (26.0-34.0); MEAN CORPUSCULAR HGB CONC 31.8 G/dL (31.0-37.0); MEAN CORPUSCULAR VOLUME 72 fL (80-100); PLATELET COUNT (AUTO) 190 K/uL (150-450); RED BLOOD CELL COUNT(AUTO) 4.66 MIL/uL (4.50-5.90); RED CELL DISTRIBUTION WIDTH 17.3 % (11.5-14.5); WHITE BLOOD COUNT (AUTO) 7.6 K/uL (4.5-11.0)
[2023-08-21 14:57] LABS: CALCIUM, TOTAL 8.4 mg/dL (8.8-10.5); CREATININE 1.86 mg/dL (0.60-1.30); POTASSIUM 4.7 mmol/L (3.5-5.1)
[2023-08-21 15:03] LABS: ALBUMIN 3.2 g/dL (3.4-5.0); BILIRUBIN,TOTAL 0.5 mg/dL (0.1-1.0)
[2023-08-21 15:40] LABS: BAND NEUTROPHILS % (MANUAL) 0 % (0-5)
[2023-08-21 15:43] VITALS: BP 112/60; PULSE 79; RESP 16
[2023-08-21 15:43] LABS: EOSINOPHILS % (MANUAL) 14 % (1-6); LYMPHOCYTES % (MANUAL) 7 % (22-44); MONOCYTES % (MANUAL) 11 % (2-9); SEGMENTED NEUTROPHILS % 68 % (40-70); TOTAL CELLS COUNTED 100
[2023-08-21 15:44] LABS: RBC MORPHOLOGY COMMENT ABNORMAL R
[2023-08-21] MEDS ORDERED: PERMETHRIN 5% 60 GM CREAM TP ONE (15:45)
== END 2023-08-21 18:01 | disposition home or self-care (01) ==
LOC: EMS 14:21
DX: B86 Scabies (principal); R21 Rash and other nonspecific skin eruption; E11.9 Type 2 diabetes mellitus without complications; E78.00 Pure hypercholesterolemia, unspecified; I10 Essential (primary) hypertension; Z98.890 Other specified postprocedural states; Z91.013 Allergy to seafood
CPT/HCPCS: 80053; 82962; 85025; 99283

== ENCOUNTER 2023-08-24 11:13 | Emergency (ER) | payer MEDICARE, OTHER ==
[~2023-08-24] VITALS: Ht 154.9 cm; Wt 62.6 kg
[~2023-08-24 11:13] MED LIST changes: +CHOL200059 PO; +CLOP75TA32 PO; -FAMO20 PO; +FERR325T23 PO; +LINA5TAB PO; -LOVA20TA73 PO; -METF-1211 PO; +METO50 PO; +OMEP10CA5 PO; -PRED-554 PO; -TACR30OI TP; -TRI2515C TP; -VITA1CAP PO
[2023-08-24 11:32] VITALS: TEMP 97.9
[2023-08-24] MEDS ORDERED: DiphenhydrAMINE HCL 25 MG CAPSULE PO ONE (12:00)
[2023-08-24 13:00] VITALS: BP 140/74; PULSE 64; RESP 16
== END 2023-08-24 13:27 | disposition home or self-care (01) ==
LOC: EMS 11:47
DX: L29.9 Pruritus, unspecified (principal); E11.9 Type 2 diabetes mellitus without complications; E78.00 Pure hypercholesterolemia, unspecified; I10 Essential (primary) hypertension; Z98.890 Other specified postprocedural states; Z91.013 Allergy to seafood
CPT/HCPCS: 99283

== ENCOUNTER 2023-08-28 10:44 | Emergency (ER) | payer MEDICARE, OTHER ==
[~2023-08-28] VITALS: Ht 162.6 cm; Wt 60.0 kg
[2023-08-28 10:59] VITALS: TEMP 97.1
[2023-08-28 11:26] LABS: GLUCOMETER DEV NAME(LOC) ERT.5; GLUCOSE,POINT OF CARE 141 MG/DL (70-110)
[2023-08-28] MEDS ORDERED: PredniSONE 20 MG TABLET PO ONE (12:00)
[2023-08-28] MEDS ORDERED: DiphenhydrAMINE HCL 50 MG/ML VIAL IM ONE (12:00)
[2023-08-28 12:10] LABS: HEMOGLOBIN 10.7 g/dL (13.5-17.5); MEAN CORPUSCULAR HEMOGLOBIN 22.9 pg (26.0-34.0); MEAN CORPUSCULAR HGB CONC 31.6 G/dL (31.0-37.0); MEAN CORPUSCULAR VOLUME 73 fL (80-100); PLATELET COUNT (AUTO) 175 K/uL (150-450); RED BLOOD CELL COUNT(AUTO) 4.69 MIL/uL (4.50-5.90); RED CELL DISTRIBUTION WIDTH 17.4 % (11.5-14.5); WHITE BLOOD COUNT (AUTO) 10.9 K/uL (4.5-11.0)
[2023-08-28] MEDS ORDERED: DIPH25CA85 PO (12:11)
[2023-08-28] MEDS ORDERED: PRED-554 PO (12:11)
[2023-08-28 12:19] LABS: CALCIUM, TOTAL 8.4 mg/dL (8.8-10.5); CREATININE 2.19 mg/dL (0.60-1.30); POTASSIUM 4.5 mmol/L (3.5-5.1)
[2023-08-28 12:48] LABS: BAND NEUTROPHILS % (MANUAL) 8 % (0-5); LYMPHOCYTES % (MANUAL) 13 % (22-44); RBC MORPHOLOGY COMMENT ABNORMAL RBC MORPH; SEGMENTED NEUTROPHILS % 79 % (40-70); TOTAL CELLS COUNTED 100
[2023-08-28 13:15] VITALS: BP 110/64; PULSE 60; RESP 16
== END 2023-08-28 13:45 | disposition home or self-care (01) ==
LOC: EMS 10:50
DX: E11.22 Type 2 diabetes mellitus with diabetic chronic kidney disease (principal); I12.9 Hypertensive chronic kidney disease with stage 1 through stage 4 chronic kidney disease, or unspecified chronic kidney disease; N18.9 Chronic kidney disease, unspecified; R21 Rash and other nonspecific skin eruption; E78.00 Pure hypercholesterolemia, unspecified; Z98.890 Other specified postprocedural states; Z91.013 Allergy to seafood
CPT/HCPCS: 99283; 80048; 82962; 85025; 36415; 96372; J1200; J7512